=== PATIENT | male | born 1995 | race Caucasian/White ===

== ENCOUNTER 2021-08-02 13:23 | Inpatient (IN) | payer OTHER ==
[~2021-08-02] VITALS: Ht 172.7 cm; Wt 56.2 kg
--- NOTE | 2021-08-02 13:32 | NUR ---
TO ER BED 11, ELVIRA [id number] From "Home Back Pain xcouple days bent over and heard a pop", patient said that he coughed and his back started hurting, aaox3, breathing even and non labored, connected to monitor
[2021-08-02] MEDS ORDERED: MORPHINE SULFATE INJ 2 MG/ML DISP.SYRIN IV ONE (15:00)
[2021-08-02] MEDS ORDERED: DIAZEPAM 5 MG/ML 2 ML DISP.SYRIN IV ONE (15:00)
[2021-08-02] MEDS ORDERED: KETOROLAC TROMETHAMINE INJ 30 MG/ML VIAL IV ONE (15:00)
[2021-08-02] MEDS ORDERED: DIAZEPAM 5 MG/ML 2 ML DISP.SYRIN ONE (15:12)
[2021-08-02] MEDS ORDERED: KETOROLAC TROMETHAMINE 15 MG/ML VIAL ONE (15:12)
[2021-08-02] MEDS ORDERED: MORPHINE SULFATE INJ 2 MG/ML DISP.SYRIN ONE (15:12)
[2021-08-02] MEDS ORDERED: PRED20TA PO (15:22)
[2021-08-02] MEDS ORDERED: CYCL5TAB PO (15:22)
[2021-08-02] MEDS ORDERED: IBUP-1955 PO (15:22)
[2021-08-02] MEDS ORDERED: HYDR-4209 PO (15:22)
[2021-08-02] MEDS ORDERED: IV NS 0.9% 1,000 ML IV ONE (15:30)
[2021-08-02] MEDS ORDERED: HYDROMORPHONE 1 MG/1 ML DISP.SYRIN ONE ×2 (16:29→20:19)
[2021-08-02] MEDS ORDERED: HYDROMORPHONE 1 MG/1 ML DISP.SYRIN IV ONE ×2 (16:30→20:00)
--- NOTE | 2021-08-02 17:23 | NUR ---
URINE COLLECTED AND SENT TO LAB
--- NOTE | 2021-08-02 17:23 | NUR ---
TAKEN TO CT
--- NOTE | 2021-08-02 17:39 | NUR ---
COVID SWAB DONE AND SENT TO LAB
[2021-08-02] MEDS ORDERED: LAMO150T6 PO (17:46)
[2021-08-02] MEDS ORDERED: CLON1TAB12 PO (17:46)
[2021-08-02] MEDS ORDERED: DEXT5TAB PO (17:46)
[2021-08-02] MEDS ORDERED: AMPH10TA4 PO (17:59)
[2021-08-02 18:20] LABS: BILIRUBIN,URINE NEGATIVE (NEGATIVE); COLOR,URINE YELLOW (YELLOW); LEUKOCYTE ESTERASE ,URINE NEGATIVE (NEGATIVE); NITRITE, URINE NEGATIVE (NEGATIVE); PROTEIN,URINE NEGATIVE (NEGATIVE); UGLUCOSE NEGATIVE (NEGATIVE); UROBILINOGEN,URINE 0.2 EU/dL (0.2)
[2021-08-02 19:08] LABS: BACTERIA,URINE None seen /HPF (None Seen); MUCUS,URINE Few /LPF (None Seen); RBC,URINE 0-2 /HPF (0-2); SQUAMOUS EPITHELIAL CELL,UR 0-2 /HPF (None Seen); WBC,URINE 0-2 /HPF (0-3)
[2021-08-02 19:29] LABS: CALCIUM, SERUM 8.6 mg/dL (8.5-10.1); CREATININE 0.8 mg/dL (0.6-1.3); POTASSIUM 3.2 mmol/L (3.5-5.1)
--- NOTE | 2021-08-02 19:29 | NUR ---
PAGED EPIC FOR PANEL. AWAITING A CALL BACK.
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
--- NOTE | 2021-08-02 19:45 | NUR ---
PT IS RESTING COMFORTABLY IN BED, WARM BLANKET PROVIDED. PT STATED 8/10 BACK PAIN. MD MADE AWARE
[2021-08-02] MEDS ORDERED: DEXAMETHASONE SOD PHOSPHATE 10 MG/ML VIAL IV ONE (20:00)
[2021-08-02 20:06] LABS: BASOPHILS # (AUTO) 0.1 K/uL (0.0-0.2); BASOPHILS % (AUTO) 0.6 % (0.0-2.0); EOSINOPHILS % (AUTO) 1.9 % (0.0-6.0); HEMATOCRIT 43 % (39-51); HEMOGLOBIN 15.2 g/dL (13.5-17.5); LYMPHOCYTES # (AUTO) 1.7 K/uL (0.8-4.8); LYMPHOCYTES % (AUTO) 18.2 % (20.0-44.0); MEAN CORPUSCULAR HGB CONC 35 g/dl (31.0-36.0); MEAN CORPUSCULAR VOLUME 93 fL (80-96); MONOCYTES # (AUTO) 0.7 K/uL (0.1-1.30); MONOCYTES % (AUTO) 7.3 % (2.0-12.0); NEUTROPHILS # (AUTO) 6.8 K/uL (1.8-8.9); PLATELET COUNT (AUTO) 196 K/uL (150-450); RED BLOOD CELL COUNT(AUTO) 4.65 MIL/uL (4.5-6.0); WHITE BLOOD COUNT (AUTO) 9.4 K/uL (4.3-11.0)
[2021-08-02] MEDS ORDERED: DEXAMETHASONE SOD PHOSPHATE 10 MG/ML VIAL ONE (20:19)
[2021-08-02] MEDS: ENOXAPARIN SODIUM 40 MG/0.4 ML DISP.SYRIN SQ SCH (22:00)
[2021-08-02] MEDS ORDERED: ZOLPIDEM TARTRATE 5 MG TABLET PO PRN (22:00)
[2021-08-02] MEDS ORDERED: MAGNESIUM HYDROXIDE 30 ML UDC PO PRN (22:00)
[2021-08-02] MEDS ORDERED: Z GUARD REMEDY 4 OZ OINT TP PRN (22:00)
[2021-08-02] MEDS ORDERED: POTASSIUM CHLORIDE 20 MEQ TAB.PRT.SR PO ONE (22:00)
[2021-08-02] MEDS ORDERED: ACETAMINOPHEN 325 MG TABLET PO PRN (22:00)
[2021-08-02] MEDS ORDERED: ONDANSETRON HCL/PF 4 MG/2 ML VIAL IVP PRN (22:00)
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
[2021-08-03] MEDS: IV NS 0.9% 1,000 ML IV PRN ×2 (00:01→14:23)
[2021-08-03 00:10] VITALS: BP 103/66
[2021-08-03] MEDS: HYDROMORPHONE INJ 2 MG/ML DISP.SYRIN IV PRN ×5 (00:48→16:39)
--- NOTE | 2021-08-03 00:48 | NUR ---
ADMINISTERED DILAUDID FOR PAIN PER MD ORDER. VS WNL. WILL CONTINUE TO MONITOR.
--- NOTE | 2021-08-03 01:00 | NUR ---
PT COMPLAINED OF PAIN MEDICATION (MORPHINE, DILAUDID, AND TORADOL) IN ER NOT BEING EFFECTIVE. PT CRYING DUE TO PAIN. CONTACTED TRICIA WHO ORDERED OXYCODONE 5MG Q4HRS PRN. WILL CONTINUE TO MONITOR.
[2021-08-03] MEDS: oxyCODONE IR immediate release 5 MG PO PRN ×4 (02:19→19:41)
--- NOTE | 2021-08-03 02:19 | NUR ---
ADMINISTERED OXYCODONE FOR PAIN PER MD ORDER. VS WNL. WILL CONTINUE TO MONITOR.
--- NOTE | 2021-08-03 04:52 | NUR ---
ADMINISTERED DILAUDID PER MD ORDER. VS WNL. WILL CONTINUE TO MONITOR.
[2021-08-03 06:22] LABS: BASOPHILS % (AUTO) 0.1 % (0.0-2.0); HEMATOCRIT 46 % (39-51); HEMOGLOBIN 15.9 g/dL (13.5-17.5); LYMPHOCYTES # (AUTO) 0.6 K/uL (0.8-4.8); MEAN CORPUSCULAR HGB CONC 35 g/dl (31.0-36.0); MEAN CORPUSCULAR VOLUME 93 fL (80-96); MONOCYTES # (AUTO) 0.2 K/uL (0.1-1.30); MONOCYTES % (AUTO) 1.4 % (2.0-12.0); NEUTROPHILS # (AUTO) 9.9 K/uL (1.8-8.9); NEUTROPHILS % (AUTO) 92.5 % (43.0-81.0); PLATELET COUNT (AUTO) 223 K/uL (150-450); RED BLOOD CELL COUNT(AUTO) 4.93 MIL/uL (4.5-6.0); WHITE BLOOD COUNT (AUTO) 10.7 K/uL (4.3-11.0)
--- NOTE | 2021-08-03 06:39 | NUR ---
RN CLOSING NOTES PT IN BED, AWAKE. AOx4, ABLE TO MAKE NEEDS KNOWN. ON RA AND TOLERATING WELL. NO SOB NOTED. NO S/SX OF RESPIRATORY DISTRESS NOTED. IV ACCESS IN RAC #20 RUNNING NS @ 75 ML/HR. ALL NEEDS MET. PT KEPT CLEAN AND DRY. PAIN TREATED THROUGHOUT SHIFT. SAFETY PRECAUTIONS IN PLACE: BED IN LOWEST, LOCKED POSITION, SIDERAILS UPx2, AND BRAKES ON. TABLE AND LESLIE LIGHT WITHIN REACH. WILL ENDORSE TO ONCOMING SHIFT FOR BILL.
[2021-08-03 06:40] LABS: ALBUMIN 3.7 g/dL (3.4-5.0); BILIRUBIN,TOTAL 0.3 mg/dL (0.2-1.0); CALCIUM, SERUM 9.1 mg/dL (8.5-10.1); CREATININE 0.9 mg/dL (0.6-1.3); MAGNESIUM 2.1 mg/dL (1.8-2.4); PHOSPHORUS 3.8 mg/dL (2.5-4.9); POTASSIUM 4.6 mmol/L (3.5-5.1); TOTAL PROTEIN, SERUM 7.6 g/dL (6.4-8.2)
--- NOTE | 2021-08-03 07:15 | NUR ---
ms rn received on bed, awake,alert,oriented x4,not in any form of distress, respirations even and unlabored,no sob noted, came in w/ back pain,awill monitor patient.
[2021-08-03 08:00] VITALS: BP 103/65
[2021-08-03] MEDS: CYCLOBENZAPRINE 10 MG TABLET PO SCH ×3 (09:04→16:39)
[2021-08-03] MEDS: predniSONE 20 MG TABLET PO SCH ×2 (09:04→16:39)
[2021-08-03] MEDS: PANTOPRAZOLE 40 MG TABLET.DR PO SCH (09:06)
[2021-08-03] MEDS: ENOXAPARIN SODIUM 40 MG/0.4 ML DISP.SYRIN SQ SCH (09:24)
--- NOTE | 2021-08-03 09:50 | NUR ---
ms collier breakfast served,due meds given, tolerated well.
[2021-08-03] MEDS ORDERED: clonazePAM 1 MG TABLET PO PRN (11:30)
[2021-08-03 16:05] VITALS: BP 103/52
--- NOTE | 2021-08-03 18:30 | NUR ---
ms rn on bed, no distress noted, patient is regularly getting pain meds on time, all needs attended.
--- NOTE | 2021-08-03 19:41 | NUR ---
MS/RN NOTE PT AWAKE IN BED, A/OX4, NO RESPIRATORY DISTRESS. PT STATES PAIN HAS BEEN BETTER CONTROLLED THAN EARLIER TODAY AND HE CAN MOVE HIS LEGS A BIT MORE. C/O PAIN TO LOWER BACK 12/04. GIVEN PRN OXY IR ORDERED. PT IN NO ACUTE DISTRESS. ALL NEEDS ATTENDED TO. SAFETY MEASURES IN PLACE. WILL CONT TO MONITOR.
[2021-08-03 20:00] VITALS: BP 101/62
[2021-08-03] MEDS: LamoTRIgine 100 MG TABLET PO SCH ×2 (20:19→20:27)
[2021-08-04] MEDS: HYDROMORPHONE INJ 2 MG/ML DISP.SYRIN IV PRN ×4 (04:29→20:17)
[2021-08-04] MEDS: IV NS 0.9% 1,000 ML IV PRN (04:33)
[2021-08-04] MEDS: PANTOPRAZOLE 40 MG TABLET.DR PO SCH ×2 (06:30→09:17)
--- NOTE | 2021-08-04 06:58 | NUR ---
MS/RN NOTE PT AWAKE AT THIS TIME, A/OX4. REPORTS PAIN WELL CONTROLLED WITH PRN PAIN MEDS. PT SLEPT WELL DURING THE NIGHT. NO ACUTE DISTRESS NOTED. SAFETY MEASURES MAINTAINED.
--- NOTE | 2021-08-04 08:06 | NUR ---
MS/RN OPENING NOTES RECEIVED PATIENT IN BED, ALERT AND ORIENTED X4, ABLE TO MAKE NEEDS KNOWN. STABLE ON ROOM AIR. IV ACCESS ON RIGHT AC #20G IS INTACT WITH A RUNNING IV NS@75ML/HR. NO DISCOMFORTS REPORTED AT THIS TIME. SAFETY MEASURES IN PLACED: BED LOCKED ON LOWEST POSITION, SIDE RAILS UPX2, CALL LIGHT WITHIN EASY REACH. WILL CONTINUE WITH THE PLAN OF CARE.
[2021-08-04 08:15] VITALS: BP 96/51
[2021-08-04] MEDS: ENOXAPARIN SODIUM 40 MG/0.4 ML DISP.SYRIN SQ SCH (09:16)
[2021-08-04] MEDS: CYCLOBENZAPRINE 10 MG TABLET PO SCH ×3 (09:17→16:51)
[2021-08-04] MEDS: LamoTRIgine 100 MG TABLET PO SCH ×2 (09:17→20:28)
[2021-08-04] MEDS: predniSONE 20 MG TABLET PO SCH ×2 (09:17→16:51)
[2021-08-04 20:15] VITALS: BP 107/58
--- NOTE | 2021-08-04 20:17 | NUR ---
RN NOTES : PT. C/O BACK PAIN 01/04 ADMINISTERED DILAUDID PER MD ORDER. VS WNL. WILL CONTINUE TO MONITOR.
[2021-08-04] MEDS: MAG HYDROX/AL HYDROX/SIMETH 30 ML UDC PO PRN (20:28)
--- NOTE | 2021-08-04 20:28 | NUR ---
RN NOTES: PT. C/O INDIGESTIONS PRN PO MAALOX 30 ML GIVEN PER PT. REQUEST , WILL CONTINUE TO MONITOR.
--- NOTE | 2021-08-04 22:20 | NUR ---
RN NOTES: PT. C/O CONSTIPATIONS MOM 30 ML PO PRN GIVEN ,PER PT. REQUEST WILL CONTINUE TO MONITOR.
--- NOTE | 2021-08-05 06:39 | NUR ---
RN CLOSING NOTES PT. RESTING IN BED, ABLE TO MAKE NEEDS KNOWN. ON RA AND TOLERATING WELL. NO SOB NOTED NO S/SX OF RESPIRATORY DISTRESS NOTED.. ALL NEEDS MET. PT. KEPT CLEAN AND DRY. TREATED PAIN THROUGHOUT SHIFT. SAFETY PRECAUTIONS IN PLACED CALL LIGHT WITHIN REACH. WILL ENDORSE TO ONCOMING SHIFT FOR BILL.
[2021-08-05] MEDS: HYDROMORPHONE INJ 2 MG/ML DISP.SYRIN IV PRN ×3 (07:00→18:02)
--- NOTE | 2021-08-05 07:01 | NUR ---
RN NOTES : PT. C/O BACK PAIN 01/04 ADMINISTERED DILAUDID PER MD ORDER. VS WNL. WILL CONTINUE TO MONITOR.
--- NOTE | 2021-08-05 07:05 | NUR ---
RN NOTES: NO BM REPORTED , WILL ENDORSE TO AM NURSE FOR CONTINUTY OF CARE.
[2021-08-05 08:00] VITALS: BP 115/63
[2021-08-05] MEDS: LamoTRIgine 100 MG TABLET PO SCH (08:40)
[2021-08-05] MEDS: CYCLOBENZAPRINE 10 MG TABLET PO SCH ×3 (08:42→18:04)
[2021-08-05] MEDS: MAG HYDROX/AL HYDROX/SIMETH 30 ML UDC PO PRN (08:42)
[2021-08-05] MEDS: predniSONE 20 MG TABLET PO SCH ×2 (08:42→18:04)
[2021-08-05] MEDS: ENOXAPARIN SODIUM 40 MG/0.4 ML DISP.SYRIN SQ SCH (08:44)
[2021-08-05] MEDS: IV NS 0.9% 1,000 ML IV PRN (08:45)
[2021-08-05] MEDS ORDERED: CYCL10TA9 PO (11:40)
[2021-08-05] MEDS ORDERED: PRED20TA PO (11:40)
[2021-08-05] MEDS ORDERED: OXYC-133 PO ×2 (11:40→11:44)
[2021-08-05] MEDS ORDERED: PANT40TA49 PO (11:40)
[2021-08-05 16:00] VITALS: BP 101/60
--- NOTE | 2021-08-05 18:27 | NUR ---
Discharge Given patient discharge instruction prior to discharge. Given education regarding opioids, medication instructions, and discharge follow up instructions with PCP. Patient verbalized understanding. walker provided prior to discharge. IV access removed prior to discharge. Patient waiting for girlfriend to pick him up for transport to home. All belongings are with patient. Patient given discharge folder.
== END 2021-08-05 19:02 | disposition home or self-care (01) | DRG 552 ==
LOC: ER 13:45 → MED 21:51
PROVIDERS: ADMIT Hospitalist; ATTEND Nurse Practitioner Acute Care
DX: M51.26 Other intervertebral disc displacement, lumbar region (principal); M48.061 Spinal stenosis, lumbar region without neurogenic claudication; E87.6 Hypokalemia; F12.10 Cannabis abuse, uncomplicated; F41.9 Anxiety disorder, unspecified; Z20.822 Contact with and (suspected) exposure to COVID-19; K59.00 Constipation, unspecified
CPT/HCPCS: 36415; 72131-TC; 80048-TC; 80053-TC; 81001; 83735-TC; 84100-TC; 85025-TC; 97116-TC; 97530-TC; C9803; G0378; J1100; J1170; J1650; J1885; J2270; J3360; J7030

== ENCOUNTER 2021-12-13 15:34 | Emergency (ER) | payer OTHER ==
[~2021-12-13] VITALS: Ht 177.8 cm; Wt 55.3 kg
[~2021-12-13 15:34] MED LIST: AMPH10TA4 PO; CLON1TAB12 PO; CYCL10TA9 PO; LAMO150T6 PO; OXYC-133 PO; PANT40TA49 PO; PRED20TA PO
[2021-12-13] MEDS ORDERED: KETOROLAC TROMETHAMINE INJ 30 MG/ML VIAL IM ONE (16:30)
[2021-12-13] MEDS ORDERED: TDAP [DIPH/PERTUSSIS/TET] 0.5 ML VIAL IM ONE ×2 (16:30→17:09)
[2021-12-13] MEDS ORDERED: oxyCODONE/APAP (5/325 MG) 1 UDTAB TABLET PO ONE (16:30)
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
--- NOTE | 2021-12-13 17:05 | NUR ---
IV Left AC Gauge 20 1 attempt patent, fllushing, intact.
[2021-12-13] MEDS ORDERED: oxyCODONE/APAP (5/325 MG) 1 UDTAB TABLET ONE (17:08)
[2021-12-13] MEDS ORDERED: KETOROLAC TROMETHAMINE INJ 30 MG/ML VIAL ONE (17:09)
--- NOTE | 2021-12-13 17:27 | NUR ---
Urine specimen collected
--- NOTE | 2021-12-13 17:27 | NUR ---
covid swab completed
--- NOTE | 2021-12-13 17:29 | NUR ---
RESTING AT THIS TIME PT CONDITION STABLE C/O PAIN ON RT HIP WITH SKIN ABRATION
--- NOTE | 2021-12-13 17:45 | NUR ---
PT WOUNDS CLEANSED WITH HYDROGEN PEROXIDE , THEN CLEANSED WITH NS, BANDAGES PLACE ON ONES WITH OPEN SKIN, TOLERATED TX WELL, COOPERATIVE. NO FOUL ODOR, NO SIGNIFICANT DRAINAGE NOTED, STABLE
[2021-12-13] MEDS ORDERED: NAPR-1009 PO ×2 (18:05→20:54)
[2021-12-13] MEDS ORDERED: HYDR-4303 PO ×2 (18:05→20:54)
--- NOTE | 2021-12-13 18:45 | NUR ---
D/C INSTRACTION GIVEN TO Pt fully and verblized understood and fallow up care
[2021-12-13 18:49] VITALS: BP 124/39
== END 2021-12-13 19:15 | disposition home or self-care (01) ==
LOC: ER 15:42
DX: S62.001A Unspecified fracture of navicular [scaphoid] bone of right wrist, initial encounter for closed fracture (principal); S13.4XXA Sprain of ligaments of cervical spine, initial encounter; S70.01XA Contusion of right hip, initial encounter; S09.90XA Unspecified injury of head, initial encounter; R42 Dizziness and giddiness; M54.50 Low back pain, unspecified; F41.9 Anxiety disorder, unspecified; Z88.6 Allergy status to analgesic agent; Z79.899 Other long term (current) drug therapy; V22.9XXA Unspecified motorcycle rider injured in collision with two- or three-wheeled motor vehicle in traffic accident, initial encounter; Y93.89 Activity, other specified; Y92.89 Other specified places as the place of occurrence of the external cause; Y99.8 Other external cause status
CPT/HCPCS: 99284; 72125; 71045; 29125; 90471; 90715; 73502; 70450; 73110; 82962; 96372; 72170; J1885; A6403

== ENCOUNTER 2022-01-12 15:54 | Emergency (ER) | payer OTHER ==
[~2022-01-12] VITALS: Ht 177.8 cm; Wt 54.0 kg
[~2022-01-12 15:54] MED LIST changes: +HYDR-4303 PO; +NAPR-1009 PO
[2022-01-12 16:03] VITALS: BP 125/81
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
--- NOTE | 2022-01-12 18:15 | NUR ---
Patient discharged to home in stable condition. Written and verbal after care instructions given. Patient verbalizes understanding of instruction.
== END 2022-01-12 18:16 | disposition home or self-care (01) ==
LOC: ER 16:00
DX: S63.501A Unspecified sprain of right wrist, initial encounter (principal); F41.9 Anxiety disorder, unspecified; Z88.6 Allergy status to analgesic agent; Z79.899 Other long term (current) drug therapy; W22.01XA Walked into wall, initial encounter; Y93.89 Activity, other specified; Y92.89 Other specified places as the place of occurrence of the external cause; Y99.8 Other external cause status
CPT/HCPCS: 73030-TC; 73090-TC; 73110; 73130-TC

== ENCOUNTER 2022-09-28 16:21 | Emergency (ER) | payer OTHER ==
[~2022-09-28] VITALS: Ht 177.8 cm; Wt 56.7 kg
--- NOTE | 2022-09-28 16:42 | NUR ---
DR MIRELES AT BEDSIDE FOR EVAL.
--- NOTE | 2022-09-28 16:47 | NUR ---
ICE PACK PROVIDED FOR COMFORT
[2022-09-28] MEDS ORDERED: NAPROXEN 250 MG TABLET ONE (16:48)
[2022-09-28] MEDS ORDERED: NAPROXEN 250 MG TABLET PO ONE (17:00)
[2022-09-28] MEDS ORDERED: NAPR-1009 PO (17:34)
[2022-09-28 18:48] VITALS: BP 113/64
== END 2022-09-28 18:00 | disposition home or self-care (01) ==
LOC: ER 17:09
DX: S93.491A Sprain of other ligament of right ankle, initial encounter (principal); S90.31XA Contusion of right foot, initial encounter; F41.9 Anxiety disorder, unspecified; Z79.899 Other long term (current) drug therapy; Z88.1 Allergy status to other antibiotic agents; W22.8XXA Striking against or struck by other objects, initial encounter; Y93.89 Activity, other specified; Y92.89 Other specified places as the place of occurrence of the external cause; Y99.8 Other external cause status
CPT/HCPCS: 73610-TC; 73630-TC; J7030

== ENCOUNTER 2022-12-30 17:10 | Emergency (ER) | payer OTHER ==
[~2022-12-30] VITALS: Ht 177.8 cm; Wt 57.2 kg
[2022-12-30] MEDS ORDERED: CEPH500T PO (19:55)
[2022-12-30] MEDS ORDERED: SULF1TAB48 PO (19:55)
[2022-12-30] MEDS ORDERED: IBUP-1955 PO (19:59)
[2022-12-30] MEDS ORDERED: KETOROLAC TROMETHAMINE INJ 30 MG/ML VIAL ONE (20:02)
[2022-12-30] MEDS: KETOROLAC TROMETHAMINE INJ 60 MG/2 ML VIAL IM ONE (20:11)
[2022-12-30 20:12] VITALS: BP 125/65; TEMP 98.4; O2SAT 100
== END 2022-12-30 20:11 | disposition home or self-care (01) ==
LOC: ER 17:11
DX: L03.115 Cellulitis of right lower limb (principal); F41.9 Anxiety disorder, unspecified; Z79.899 Other long term (current) drug therapy; Z88.1 Allergy status to other antibiotic agents
CPT/HCPCS: 73610-TC; 73630-TC; 93971-TC; J1885

== ENCOUNTER 2023-02-10 04:50 | Emergency (ER) | payer OTHER ==
[~2023-02-10] VITALS: Ht 170.2 cm; Wt 72.6 kg
[~2023-02-10 04:50] MED LIST changes: +CEPH500T PO; +IBUP-1955 PO; +SULF1TAB48 PO
[2023-02-10 05:56] LABS: BASOPHILS % (AUTO) 0.2 % (0.0-2.0); EOSINOPHILS # (AUTO) 0.3 K/uL (0.0-0.7); EOSINOPHILS % (AUTO) 3.5 % (0.0-6.0); HEMATOCRIT 41 % (39-51); HEMOGLOBIN 13.8 g/dL (13.5-17.5); LYMPHOCYTES # (AUTO) 1.4 K/uL (0.8-4.8); LYMPHOCYTES % (AUTO) 14.6 % (20.0-44.0); MEAN CORPUSCULAR HEMOGLOBIN 31 PG (26.0-33.0); MEAN CORPUSCULAR HGB CONC 34 g/dl (31.0-36.0); MEAN CORPUSCULAR VOLUME 91 fL (80-96); MONOCYTES # (AUTO) 0.7 K/uL (0.1-1.30); MONOCYTES % (AUTO) 7.3 % (2.0-12.0); NEUTROPHILS # (AUTO) 6.9 K/uL (1.8-8.9); NEUTROPHILS % (AUTO) 74.4 % (43.0-81.0); PLATELET COUNT (AUTO) 228 K/uL (150-450); RED BLOOD CELL COUNT(AUTO) 4.45 MIL/uL (4.5-6.0); RED CELL DISTRIBUTION WIDTH 13.3 % (11.5-15.0); WHITE BLOOD COUNT (AUTO) 9.3 K/uL (4.3-11.0)
[2023-02-10 06:12] LABS: ALANINE AMINOTRANSFERASE 44 U/L (12-78); ALBUMIN 3.6 g/dL (3.4-5.0); ALCOHOL, BLOOD < 3 mg/dL (0-10); ALKALINE PHOSPHATASE 59 U/L (46-116); ASPARTATE AMINOTRANSFERASE 37 U/L (15-37); BILIRUBIN,DIRECT 0.1 mg/dL (0.0-0.2); BILIRUBIN,TOTAL 0.4 mg/dL (0.2-1.0); TOTAL PROTEIN, SERUM 7.5 g/dL (6.4-8.2)
[2023-02-10 06:13] LABS: CALCIUM, SERUM 9.1 mg/dL (8.5-10.1); CARBON DIOXIDE 28 mmol/L (21-32); CHLORIDE 100 mmol/L (98-107); CREATININE 0.8 mg/dL (0.6-1.3); GLUCOSE 76 mg/dL (74-106); POTASSIUM 3.4 mmol/L (3.5-5.1); SODIUM SERUM 139 mmol/L (136-145); UREA NITROGEN, BLOOD 10 mg/dL (7-18)
[2023-02-10 06:27] LABS: SALICYLATE 1.5 mg/dL (2.8-20.0)
[2023-02-10 06:28] LABS: ACETAMINOPHEN < 10 ug/ml (10-30)
[2023-02-10 09:57] VITALS: BP 127/62; TEMP 98.1; O2SAT 99
== END 2023-02-10 09:59 | disposition home or self-care (01) ==
LOC: ER 04:51
DX: T40.411A Poisoning by fentanyl or fentanyl analogs, accidental (unintentional), initial encounter (principal); R53.83 Other fatigue; F41.9 Anxiety disorder, unspecified; Z79.899 Other long term (current) drug therapy; Z88.1 Allergy status to other antibiotic agents; Y92.89 Other specified places as the place of occurrence of the external cause
CPT/HCPCS: 36415; 80048-TC; 80076-TC; 85025-TC; G0480